=== PATIENT | female | born 1990 | race American Indian/Alaskan Native ===

== ENCOUNTER 2024-03-10 07:38 | Emergency (ER) | payer OTHER, MEDICAID, SELFPAY ==
[2024-03-10 07:49] VITALS: BP 106/73; PULSE 93; RESP 18; TEMP 36.8; O2SAT 97; BMI 35.5
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
== END 2024-03-10 08:38 ==
PROVIDERS: Emergency Provider Emergency Medicine; PCP Nurse Practitioner Family
DX: Z02.89 Encounter for other administrative examinations (principal); Z04.1 Encounter for examination and observation following transport accident
CPT/HCPCS: 99281

== ENCOUNTER 2024-05-11 21:48 | Emergency (ER) | payer OTHER, MEDICAID, SELFPAY ==
[2024-05-11 21:48] VITALS: BMI 35.5
[2024-05-11 21:53] VITALS: BP 134/88; PULSE 83; RESP 18; TEMP 36.8; O2SAT 96
--- NOTE | 2024-05-11 22:02 | PD.EDEAR ---
ED Ear RME/HPI General Chief complaint: Ear Stated complaint: RT EAR PAIN Time Seen by Provider: 05/11/24 21:58 Arrival date/time: 05/11/24 21:48 RME / HPI RME / HPI Narrative: 34-year-old female patient came in for evaluation regarding right R ear ache. Patient's been having right ear ache since early this morning, severity moderate. Patient also noted sanguinous drainage. Denies any fever. Denies any other complaints. Related Data Previous Rx's ?Medication ?Instructions ?Recorded PNV CMB#95/FERROUS FUMARATE/FA 1 tab PO QDAY #30 tabs 01/09/17 ( MULTIVITAMINS TABLET) ibuprofen 800 mg tablet 800 mg PO Q6H PRN pain #30 tabs 06/13/19 ibuprofen 800 mg tablet 800 mg PO TID PRN pain #30 tabs 11/23/23 amoxicillin 875 mg-potassium 1 tab PO BID #14 tabs 05/11/24 clavulanate 125 mg tablet ibuprofen 800 mg tablet 800 mg PO Q8H PRN pain #30 tabs 05/11/24 Allergies Allergy/AdvReac Type Severity Reaction Status Date / Time NKA* Allergy Uncoded 03/10/24 07:51 Review of Systems Review of Systems Narrative Review of Systems: Review of system reviewed and within normal limits except mentioned in HPI ED Exam Narrative Physical exam: VITAL SIGNS: Reviewed. GENERAL APPEARANCE: Alert and interactive, follows commands, no acute distress, HEAD AND FACE: Non-traumatic. ENT: PERRL, pink conjunctivitis, eyelid no trauma, Mucous membrane moist. Left tympanic membrane erythema no bulging nontender, right tympanic membranes, with erythema bulging and tender, with serosanguineous drainage NECK: Supple, nontender, no nuchal rigidity. HEART: Regular rate, regular rhythm, no murmur, no gallops. RECTAL: Deferred. GENITAL: Deferred. NEUROLOGICAL: Gross motor function intact sensory function intact, Appropriate for age. MUSCULOSKELETAL: low back nontender, full range of motion. EXTREMITIES: Nontender, full range of motion. SKIN: Color pink, dry, no rash, no lacerations, no abrasions, no contusions. LYMPHATICS: Deferred. Course Quality Measures none Orders Category Date Time Status Amoxicillin/Pot Clav 875 [Augmentin 875] Med 05/11/24 21:58 Once 1 tab PO X1 ONE Ibuprofen Tab [Motrin Tab] Med 05/11/24 21:58 Once 800 mg PO X1 ONE Vital Signs Vital signs: Vital Signs Temperature 98.2 F 05/11/24 21:53 Pulse Rate 83 05/11/24 21:53 Respiratory Rate 18 05/11/24 21:53 Blood Pressure 134/88 H 05/11/24 21:53 Pulse Oximetry (%) 96 05/11/24 21:53 Oxygen Delivery Method Room Air 05/11/24 21:53 Ear Patient data External records reviewed:: None Clinical information provided by:: patient Social determinants that could affect healthcare access:: none Patient has the following chronic illnesses:: None How is presenting disease/condition affected by chronic disease/condition?: no chronic disease Evaluation data The following diagnostics were reviewed and interpreted by me:: other (specify) (None) Lab and/or radiology exams considered but not ordered:: None Interpretation Summary: None Medications / Prescriptions Medications or Prescriptions considered but not ordered:: None Medication administrations:: Medication Administration History Amoxicillin/Clavulanate Potassium (Amoxicillin/Pot Clav 875 Tablet) 1 tab PO X1 ONE Stop: 05/11/24 21:59 Ibuprofen (Ibuprofen Tab 400 Mg Tablet) 800 mg PO X1 ONE Stop: 05/11/24 21:59 Augmentin and Motrin Consultations Consultation(s) initiated? (list below): No Diagnosis Ear Differential Diagnosis: otitis externa, otitis media and ruptured TM Most likely diagnosis given after review of the tests above:: Otitis media Admission Indicated Admission indicated?: not indicated Admission Request Was there a request for admission?: No Disposition Plan Disposition Plan: Discharge Discharge Attestation Discharge Attestation: The patient was given an opportunity to ask questions and understood the discharge instructions. Discharge instructions specifically effects, indications for sooner follow up or return to the emergency department, and the expected course of current diagnosis. Patient condition: Stable Medical Decision Making MDM Narrative MDM Narrative: 34-year-old female patient came in for evaluation regarding right R ear ache. Patient's been having right ear ache since early this morning, severity moderate. Patient also noted sanguinous drainage. Denies any fever. Denies any other complaints. Patient received empiric antibiotic treatment in the emergency room. Patient was given Augmentin and Motrin. Patient appears nontoxic and hemodynamically stable. Patient discharged home and instructed to follow-up with primary care provider in 24 to 48 hours. Instructed to return to the emergency department immediately if worsening of symptoms Discharge Plan Plan Patient Disposition: HOME (Self Care) Disposition Comment: Stable Prescriptions/Referrals Prescriptions/Med Rec: New amoxicillin-pot clavulanate 875-125 mg tablet 1 tab PO BID Qty: 14 0RF ibuprofen 800 mg tablet 800 mg PO Q8H PRN (Reason: pain) Qty: 30 0RF No Action PNV CMB#95/FERROUS FUMARATE/FA ( MULTIVITAMINS TABLET) 1 EACH tablet 1 tab PO QDAY Qty: 30 11RF ibuprofen 800 mg tablet 800 mg PO Q6H PRN (Reason: pain) Qty: 30 0RF ibuprofen 800 mg tablet 800 mg PO TID PRN (Reason: pain) Qty: 30 0RF Problem List Clinical Impression: Otitis media Patient/Caregiver Discharge Instructions Discharge Activity: activity as tolerated Education Materials: ED Otitis Media Antibiotic ... Additional Instructions: Thank you for the opportunity for serving you today. You are stable for discharged . You are advised to: Follow-up with your PCP in 1 to 2 days Return to ED for worsening of symptoms Increase oral fluids Take medication as prescribed Print Language: Irish Stand Alone Forms: Sandra Award Info., Patient Portal Info Letter PA/LATESHA Supervising Physician PANKAJ/LATESHA Supervising Physician: MD Yisel
[2024-05-11 22:07] VITALS: RESP 18
== END 2024-05-11 22:07 | disposition home or self-care (01) ==
PROVIDERS: Emergency Provider Emergency Medicine
DX: H66.91 Otitis media, unspecified, right ear (principal)
CPT/HCPCS: 99282